=== PATIENT | female | born 1960 | race Caucasian/White ===

== ENCOUNTER → 2023-09-06 08:56 | Outpatient (REF) | payer BC, SELFPAY ==
[2023-09-06 10:04] LABS: % Eosinophils 1.9 % (0-6); % Immature Granulocytes 0.4 % (0-0.5); % Lymphocytes 33.1 % (20.5-51.1); % Monocytes 6.2 % (1.7-9.3); % Neutrophils 57.4 % (42.2-75.2); Absolute Basophils 0.1 10^3/uL (0-0.2); Absolute Eosinophils 0.1 10^3/uL (0-0.7); Absolute Lymphocytes 1.6 10^3/uL (1.2-3.4); Absolute Monocytes 0.3 10^3/uL (0.1-0.6); Absolute Neutrophils 2.8 10^3/uL (1.4-6.5); Hematocrit 38.2 % (37.0-47.0); Hemoglobin 13.4 g/dL (12.0-16.0); Mean Corp Hgb Conc. 35.1 g/dL (33.0-37.0); Mean Corpuscular Hgb 29.6 pg (27.0-31.0); Mean Corpuscular Volume 84.5 fL (81.0-99.0); Mean Platelet Volume 10.5 fL (7.4-10.4); Nucleated Red Blood Cells % 0 %; Platelet Count 229 10^3/uL (130-400); Red Blood Cell Count 4.52 10^6/uL (4.20-5.40); Red Cell Dist. Width 12.4 % (11.5-14.5); White Blood Cell Count 4.8 10^3/uL (4.8-10.8)
[2023-09-06 11:05] LABS: ALT (SGPT) 25 U/L (0-35); AST (SGOT) 27 U/L (14-36); Albumin 4.3 g/dl (3.5-5.0); Alkaline Phosphatase 83 U/L (38-126); Blood Urea Nitrogen 21 mg/dl (7-17); Calcium 9.5 mg/dl (8.4-10.2); Carbon Dioxide 25 mmol/L (22-30); Chloride 104 mmol/L (98-107); Glucose 91 mg/dl (70-99); HDL Cholesterol 67 mg/dl; Potassium 4.3 mmol/L (3.5-5.1); Sodium 136 mmol/L (135-145); Total Bilirubin 1.8 mg/dl (0.2-1.3); Total Protein 7.2 g/dl (6.3-8.2); Triglyceride 215 mg/dl (10-149); Very Low Density Lipoprotein 43 mg/dl (0-30); eGFR > 60.00
[2023-09-06 11:20] LABS: TSH Reflex To Free T4 0.07 uIU/ml (0.47-4.68)
[2023-09-06 11:53] LABS: LDL Cholesterol, Calculated 127 mg/dl; Total Cholesterol 237 mg/dl (50-199)
[2023-09-06 12:23] LABS: Glycohemoglobin (HgbA1c) 5.7 % (4.0-5.6)
== END ==
LOC: WDC 08:56
PROVIDERS: ATTENDING PHYSICIAN Nurse Practitioner Adult Health
DX: Z12.31 Encounter for screening mammogram for malignant neoplasm of breast (principal); R73.03 Prediabetes; E78.2 Mixed hyperlipidemia; R00.2 Palpitations; Z00.00 Encounter for general adult medical examination without abnormal findings
CPT/HCPCS: 36415; 77063; 77067; 80053; 80061; 83036; 84439; 84443; 85025

== ENCOUNTER → 2023-10-22 15:20 | Outpatient (REF) | payer BC, SELFPAY | LOC: RAD 15:20 | PROVIDERS: ATTENDING PHYSICIAN Nurse Practitioner Adult Health | DX: R10.32 Left lower quadrant pain (principal) | CPT/HCPCS: 74177; Q9967 ==

== ENCOUNTER → 2023-11-08 09:20 | Outpatient (REF) | payer BC, SELFPAY ==
[2023-11-08 11:03] LABS: TSH 0.16 uIU/ml (0.47-4.68)
== END ==
LOC: REG 09:20
PROVIDERS: ATTENDING PHYSICIAN Nurse Practitioner Adult Health
DX: E03.9 Hypothyroidism, unspecified (principal)
CPT/HCPCS: 36415; 84443

== ENCOUNTER → 2023-12-27 11:20 | Outpatient (REF) | payer BC, SELFPAY ==
[2023-12-27 12:04] LABS: % Basophils 0.7 % (0-2); % Eosinophils 2.1 % (0-6); % Immature Granulocytes 0.2 % (0-0.5); % Lymphocytes 28.8 % (20.5-51.1); % Monocytes 5.6 % (1.7-9.3); % Neutrophils 62.6 % (42.2-75.2); Absolute Eosinophils 0.1 10^3/uL (0-0.7); Absolute Lymphocytes 1.2 10^3/uL (1.2-3.4); Absolute Monocytes 0.2 10^3/uL (0.1-0.6); Absolute Neutrophils 2.7 10^3/uL (1.4-6.5); Hematocrit 39.8 % (37.0-47.0); Hemoglobin 13.6 g/dL (12.0-16.0); Mean Corp Hgb Conc. 34.2 g/dL (33.0-37.0); Mean Corpuscular Hgb 30.4 pg (27.0-31.0); Mean Corpuscular Volume 88.8 fL (81.0-99.0); Mean Platelet Volume 11.1 fL (7.4-10.4); Nucleated Red Blood Cells % 0 %; Platelet Count 177 10^3/uL (130-400); Red Blood Cell Count 4.48 10^6/uL (4.20-5.40); Red Cell Dist. Width 12.1 % (11.5-14.5); White Blood Cell Count 4.3 10^3/uL (4.8-10.8)
[2023-12-27 13:37] LABS: Blood Urea Nitrogen 20 mg/dl (7-17); Calcium 9.7 mg/dl (8.4-10.2); Carbon Dioxide 29 mmol/L (22-30); Chloride 102 mmol/L (98-107); Glucose 92 mg/dl (70-99); Potassium 4.7 mmol/L (3.5-5.1); Sodium 138 mmol/L (135-145); eGFR > 60.00
== END ==
LOC: REG 11:20
PROVIDERS: ATTENDING PHYSICIAN Orthopaedic Surgery; FAMILY PHYSICIAN Nurse Practitioner Adult Health
DX: Z01.818 Encounter for other preprocedural examination (principal)
CPT/HCPCS: 36415; 80048; 85025

== ENCOUNTER → 2024-01-14 09:18 | Outpatient (REF) | payer BC, SELFPAY ==
[2024-01-14 12:00] LABS: ALT (SGPT) 18 U/L (0-35); AST (SGOT) 22 U/L (14-36); Alkaline Phosphatase 76 U/L (38-126); Blood Urea Nitrogen 22 mg/dl (7-17); Calcium 9.6 mg/dl (8.4-10.2); Carbon Dioxide 29 mmol/L (22-30); Chloride 99 mmol/L (98-107); Glucose 94 mg/dl (70-99); HDL Cholesterol 60 mg/dl; LDL Cholesterol, Calculated 121 mg/dl; Potassium 4.3 mmol/L (3.5-5.1); Sodium 135 mmol/L (135-145); Total Cholesterol 250 mg/dl (50-199); Total Protein 6.5 g/dl (6.3-8.2); Triglyceride 345 mg/dl (10-149); Very Low Density Lipoprotein 69 mg/dl (0-30); eGFR > 60.00
[2024-01-14 12:15] LABS: Glycohemoglobin (HgbA1c) 5.6 % (4.0-5.6)
[2024-01-14 12:23] LABS: TSH 2.96 uIU/ml (0.47-4.68)
== END ==
LOC: REG 09:18
PROVIDERS: ATTENDING PHYSICIAN Nurse Practitioner Adult Health
DX: E03.9 Hypothyroidism, unspecified (principal); E78.2 Mixed hyperlipidemia; R73.03 Prediabetes
CPT/HCPCS: 36415; 80053; 80061; 83036; 84443

== ENCOUNTER → 2024-04-21 16:06 | Outpatient (REF) | payer BC, SELFPAY ==
[2024-04-25 07:17] LABS: HPV, High Risk Not Detected; HPV, High Risk Source Anal
== END ==
LOC: CLAB 16:06
PROVIDERS: ATTENDING PHYSICIAN Surgery
DX: Z11.51 Encounter for screening for human papillomavirus (HPV) (principal)
CPT/HCPCS: 87624; 88112

== ENCOUNTER → 2024-05-15 08:13 | Outpatient (REF) | payer BC, SELFPAY ==
[2024-05-15 09:21] LABS: ALT (SGPT) 34 U/L (0-35); AST (SGOT) 32 U/L (14-36); Albumin 4.3 g/dl (3.5-5.0); Alkaline Phosphatase 67 U/L (38-126); Blood Urea Nitrogen 23 mg/dl (7-17); Calcium 9.8 mg/dl (8.4-10.2); Carbon Dioxide 31 mmol/L (22-30); Chloride 100 mmol/L (98-107); Glucose 88 mg/dl (70-99); HDL Cholesterol 64 mg/dl; LDL Cholesterol, Calculated 116 mg/dl; Potassium 4.8 mmol/L (3.5-5.1); Sodium 140 mmol/L (135-145); Total Bilirubin 1.2 mg/dl (0.2-1.3); Total Cholesterol 224 mg/dl (50-199); Total Protein 6.9 g/dl (6.3-8.2); Triglyceride 220 mg/dl (10-149); Very Low Density Lipoprotein 44 mg/dl (0-30); eGFR > 60.00
[2024-05-15 12:20] LABS: Glycohemoglobin (HgbA1c) 5.4 % (4.0-5.6)
== END ==
LOC: REG 08:13
PROVIDERS: ATTENDING PHYSICIAN Nurse Practitioner Adult Health
DX: E03.9 Hypothyroidism, unspecified (principal); E78.2 Mixed hyperlipidemia; R73.03 Prediabetes; Z68.37 Body mass index [BMI] 37.0-37.9, adult
CPT/HCPCS: 36415; 80053; 80061; 83036

== ENCOUNTER → 2024-05-25 09:04 | Outpatient (REF) | payer BC, SELFPAY | LOC: RAD 09:04 | PROVIDERS: ATTENDING PHYSICIAN Nurse Practitioner Adult Health; FAMILY PHYSICIAN Obstetrics & Gynecology Gynecology | DX: N95.0 Postmenopausal bleeding (principal) | CPT/HCPCS: 76830; 76856 ==

== ENCOUNTER 2024-08-18 06:16 | Day surgery (SDC) | payer BC, SELFPAY | END 2024-08-18 13:49 | disposition home or self-care (01) | LOC: GI 06:16 | PROVIDERS: ATTENDING PHYSICIAN Surgery | DX: Z12.11 Encounter for screening for malignant neoplasm of colon (principal); D12.0 Benign neoplasm of cecum; K57.30 Diverticulosis of large intestine without perforation or abscess without bleeding; Z86.0101 Personal history of adenomatous and serrated colon polyps | CPT/HCPCS: 45385; 88305 ==

== ENCOUNTER → 2024-09-04 08:30 | Outpatient (REF) | payer BC, SELFPAY ==
[2024-09-04 11:11] LABS: Hematocrit 40.3 % (37.0-47.0); Hemoglobin 13.8 g/dL (12.0-16.0); Mean Corp Hgb Conc. 34.2 g/dL (33.0-37.0); Mean Corpuscular Hgb 30.7 pg (27.0-31.0); Mean Corpuscular Volume 89.6 fL (81.0-99.0); Mean Platelet Volume 10.3 fL (7.4-10.4); Platelet Count 204 10^3/uL (130-400); Red Cell Dist. Width 12.3 % (11.5-14.5); White Blood Cell Count 5.6 10^3/uL (4.8-10.8)
[2024-09-04 11:36] LABS: ALT (SGPT) 31 U/L (0-35); AST (SGOT) 27 U/L (14-36); Albumin 4.1 g/dl (3.5-5.0); Alkaline Phosphatase 77 U/L (38-126); Blood Urea Nitrogen 22 mg/dl (7-17); Calcium 9.3 mg/dl (8.4-10.2); Carbon Dioxide 32 mmol/L (22-30); Chloride 101 mmol/L (98-107); Glucose 84 mg/dl (70-99); Potassium 4.6 mmol/L (3.5-5.1); Sodium 139 mmol/L (135-145); Total Bilirubin 1.4 mg/dl (0.2-1.3); Total Protein 6.8 g/dl (6.3-8.2); eGFR > 60.00
[2024-09-04 11:48] LABS: INR 0.89; PT 12.3 Sec (11.4-14.6)
[2024-09-04 14:09] VITALS: BMI 40.5
[2024-09-04 14:34] LABS: Glycohemoglobin (HgbA1c) 5.5 % (4.0-5.6)
== END ==
LOC: REG 08:30
PROVIDERS: ATTENDING PHYSICIAN Surgery; FAMILY PHYSICIAN Nurse Practitioner Adult Health
DX: K57.32 Diverticulitis of large intestine without perforation or abscess without bleeding (principal)
CPT/HCPCS: 36415; 80053; 83036; 85027; 85610; 85730; 86850; 86900; 86901; 93005

== ENCOUNTER → 2024-11-07 11:39 | Outpatient (REF) | payer BC, SELFPAY ==
[2024-11-09 14:12] LABS: Rubeola (Measles) IgG Positive
== END ==
LOC: REG 11:39
PROVIDERS: ATTENDING PHYSICIAN Nurse Practitioner Adult Health
DX: Z01.84 Encounter for antibody response examination (principal)
CPT/HCPCS: 36415; 86765

== ENCOUNTER 2024-11-27 07:41 | Inpatient (IN) | payer BC, SELFPAY ==
[2024-11-18 11:16] LABS: Hematocrit 40.1 % (37.0-47.0); Hemoglobin 13.6 g/dL (12.0-16.0); Mean Corp Hgb Conc. 33.9 g/dL (33.0-37.0); Mean Corpuscular Hgb 30.6 pg (27.0-31.0); Mean Corpuscular Volume 90.1 fL (81.0-99.0); Mean Platelet Volume 11.3 fL (7.4-10.4); Platelet Count 185 10^3/uL (130-400); Red Blood Cell Count 4.45 10^6/uL (4.20-5.40); Red Cell Dist. Width 12.1 % (11.5-14.5); White Blood Cell Count 4.2 10^3/uL (4.8-10.8)
[2024-11-18 11:20] LABS: APTT 24.2 Sec (23.4-35.0); INR 1.07; PT 14.4 Sec (11.4-14.6)
[2024-11-18 11:38] LABS: Glycohemoglobin (HgbA1c) 5.5 % (4.0-5.6)
[2024-11-18 12:08] LABS: ALT (SGPT) 15 U/L (0-35); AST (SGOT) 22 U/L (14-36); Albumin 3.7 g/dl (3.5-5.0); Alkaline Phosphatase 60 U/L (38-126); Blood Urea Nitrogen 17 mg/dl (7-17); Calcium 9.6 mg/dl (8.4-10.2); Carbon Dioxide 33 mmol/L (22-30); Chloride 102 mmol/L (98-107); Glucose 82 mg/dl (70-99); Potassium 4.4 mmol/L (3.5-5.1); Sodium 139 mmol/L (135-145); Total Bilirubin 0.9 mg/dl (0.2-1.3); Total Protein 6.1 g/dl (6.3-8.2); eGFR > 60.00
[2024-11-18 13:04] VITALS: BMI 35.1
[2024-11-27] VITALS (15 sets, daily range): BP systolic 105–143; BP diastolic 51–79; BMI 35.1
[2024-11-27] MEDS: TYLENOL 1000 MG PO (08:19)
[2024-11-27] MEDS: ENTEREG 12 MG PO (08:19)
[2024-11-27] MEDS: HEPARIN 5000 UNITS SC (08:32)
[2024-11-27] MEDS: TRANSDERM-SCOP 1 PATCH TRANSDERM (08:36)
[2024-11-27] MEDS: NORMOSOL-R/PLASMALYTE-A 1000 IV ×2 (09:02→14:28)
--- NOTE | 2024-11-27 12:57 | W.IMMPOSTOP ---
Surgical Immed Post Op Note
-
Primary Surgeon: Cameron Abreu MD
Oil Sprayer: TYRA Burt
Pre-op Diagnosis: Recurrent sigmoid diverticulitis
Post-op Diagnosis: Same
Procedure Performed: Robotic sigmoid colectomy with intracorporeal anastomosis
Anesthesia Type: GET
Specimen / Cultures: Sigmoid colon (suture is proximal)
Estimated Blood Loss: 20cc
Complications: None
Operative Findings: Chronic sigmoid diverticulitis
28mm EEA
Normal leak test
Patient's updated via telephone.
[2024-11-27] MEDS: TORADOL 15 MG IV ×2 (13:37→20:00)
[2024-11-27] MEDS: ZOFRAN 4 MG IV (14:02)
[2024-11-27] MEDS: FLAGYL 500 MG 100 IV (15:30)
[2024-11-27] MEDS: TYLENOL 650 MG PO ×2 (15:31→19:58)
--- NOTE | 2024-11-27 16:17 | PTCARENOTE ---
Pt arrived to 2S from PACU. AAOx3. VSS. Bose catheter in place. Face and chest pink to light red from preoperative bowel prep, unchanged from PACU assessment. 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 IVF infusing as ordered. Tolerating clear liquid diet. Bed locked
in lowest position, safety maintained. Call canchola within reach, spouse at bedside.
[2024-11-28] MEDS: TYLENOL 650 MG PO ×5 (00:59→20:44)
[2024-11-28] MEDS: FLAGYL 500 MG 100 IV (00:59)
[2024-11-28] MEDS: TORADOL 15 MG IV ×4 (01:00→20:44)
[2024-11-28 03:07] VITALS: BP 116/61
[2024-11-28] MEDS: NORMOSOL-R/PLASMALYTE-A 1000 IV ×2 (03:29→14:19)
[2024-11-28] MEDS: TYLENOL PO (04:59)
[2024-11-28] MEDS: SYNTHROID 150 MCG PO (05:16)
[2024-11-28 06:00] VITALS: BMI 35.0
[2024-11-28 07:07] LABS: % Basophils 0.2 % (0-2); % Immature Granulocytes 0.5 % (0-0.5); % Lymphocytes 5.7 % (20.5-51.1); % Neutrophils 89.6 % (42.2-75.2); Absolute Lymphocytes 0.4 10^3/uL (1.2-3.4); Absolute Monocytes 0.3 10^3/uL (0.1-0.6); Absolute Neutrophils 5.8 10^3/uL (1.4-6.5); Hematocrit 34.8 % (37.0-47.0); Hemoglobin 12.3 g/dL (12.0-16.0); Mean Corp Hgb Conc. 35.3 g/dL (33.0-37.0); Mean Corpuscular Hgb 30.9 pg (27.0-31.0); Mean Corpuscular Volume 87.4 fL (81.0-99.0); Mean Platelet Volume 10.8 fL (7.4-10.4); Nucleated Red Blood Cells % 0 %; Platelet Count 147 10^3/uL (130-400); Red Blood Cell Count 3.98 10^6/uL (4.20-5.40); White Blood Cell Count 6.5 10^3/uL (4.8-10.8)
[2024-11-28 07:20] VITALS: BP 124/69
[2024-11-28 07:35] LABS: Blood Urea Nitrogen 11 mg/dl (7-17); Calcium 8.4 mg/dl (8.4-10.2); Carbon Dioxide 29 mmol/L (22-30); Chloride 107 mmol/L (98-107); Estimated Creatinine Clearance 95 ml/min; Glucose 131 mg/dl (70-99); Potassium 4.1 mmol/L (3.5-5.1); Sodium 139 mmol/L (135-145); eGFR > 60.00
[2024-11-28] MEDS: ENTEREG 12 MG PO ×2 (08:37→20:44)
[2024-11-28] MEDS: ASPIR LOW (ENTERIC COATED) 81 MG PO (08:37)
[2024-11-28] MEDS: ZESTRIL 10 MG PO (08:38)
[2024-11-28] MEDS: ORETIC 12.5 MG PO (08:38)
--- NOTE | 2024-11-28 09:39 | CM ---
CM met with pt at bedside POD 1.
Pt resides with spouse in a rancher home with 2 randi. Prior to admission ind with adl's and amb using no AD. No DME in home. 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
Confirmed PCP is Erickson Reyes. Pharmacy is [address]
Pt has VN history with [facility]. Acute rehab history at [facility] s/p ECMO years ago. No SNF hx.
Discussed VN. If recc'd, pt is agreeable. Offered choice. Preference would be for [facility].
CM to follow and watch for needs. Pt has + family supports in the home (spouse) and daughter in [place].
[2024-11-28 11:15] VITALS: BP 98/50
--- NOTE | 2024-11-28 13:49 | W.PN.CRS1 ---
Addendum entered and electronically signed by Kolton Lopez MD 11/28/24 14:03:
Patient seen and examined.
No significant complaints. Pain well-controlled. No nausea or vomiting. Passing flatus, no BM. Afebrile. Ambulating. Bose in place.
Gen: NAD
Abd: soft, mild tenderness, obese, ND, non-peritoneal, incisions c/d/i - no erythema, ecchymosis or drainage
Patient is a 64 yo F with a h/o recurrent diverticulitis presenting for scheduled surgery
POD #1 Robotic sigmoid colectomy with intracorporeal anastomosis
AFVSS
Labs stable, no leukocytosis
Passing flatus, tolerating clears thus far
--C/W CLD
--Continue IVF
--Pain control: Tylenol, Toradol, Oxycodone, IV Dilaudid PRN
--DC Bose; void trial
--OOB/Ambulate
--Continue home meds
--DVT: Lovenox
Original Note:
Today's Communication / Plan
-
Clears/IVF
Void trial
Assessment/Plan
-
64 yo female with a h/o recurrent diverticulitis presenting for scheduled surgery now POD #1 Robotic sigmoid colectomy with intracorporeal anastomosis
AFVSS
Labs stable, no leukocytosis
Passing flatus, tolerating clears thus far
--Void trial
--OOB/Ambulate
--C/W CLD
--Analgesics scheduled and prn
--Continue home meds
--Continue IVF
--Lovenox for VTE ppx
Subjective Data
Procedure
11/27/2024 Robotic sigmoid colectomy with intracorporeal anastomosis
Subjective Data
Date of Service: November 28, 2024
Patient seen and examined at bedside with Dr. Lambour. Denies n/v. Ambulating in hallways. Passing flatus. Minimal discomfort.
Objective Data
-
Vital Signs
Temp Pulse Resp BP Pulse Ox
97.8 F 55 16 98/50 99
11/28/24 11:15 11/28/24 11:15 11/28/24 11:15 11/28/24 11:15 11/28/24 11:15
Intake & Output
11/27/24 11/28/24 11/29/24
06:59 06:59 06:59
Intake Total 1700 / 1700
Output Total 2550 / 2550
Balance -850 / -850
Intake:
IV fluids (Total) 1500 / 1500
Normosal 400 / 400
IV piggybacks 200 / 200
Output:
Urine, Bose 2550 / 2550
Lab Results
11/28/24 05:28
11/28/24 05:28
Physical Exam
-
General: No Acute Distress
Abdomen: Soft, Non Distended and Tender (minimal to incisions)
Incision: Clear, Dry, Intact (dermabond intact, mild ecchymosis)
[2024-11-28 15:40] VITALS: BP 103/46
[2024-11-28 16:27] VITALS: BP 100/55
[2024-11-28] MEDS: LOVENOX 40 MG SC (17:13)
[2024-11-28 23:30] VITALS: BP 109/53
[2024-11-29] MEDS: TYLENOL PO ×2 (01:00→23:04)
[2024-11-29] MEDS: TORADOL 15 MG IV ×2 (02:48→13:00)
[2024-11-29] MEDS: NORMOSOL-R/PLASMALYTE-A 1000 IV (02:50)
[2024-11-29] MEDS: TYLENOL 650 MG PO ×5 (03:03→19:44)
[2024-11-29 06:00] VITALS: BMI 35.5
[2024-11-29] MEDS: SYNTHROID 300 MCG PO (06:08)
[2024-11-29 08:15] VITALS: BP 100/56
[2024-11-29] MEDS: ASPIR LOW (ENTERIC COATED) 81 MG PO (08:27)
[2024-11-29] MEDS: ORETIC PO (08:28)
[2024-11-29] MEDS: ENTEREG 12 MG PO ×2 (08:28→19:44)
[2024-11-29] MEDS: ZESTRIL PO (08:29)
--- NOTE | 2024-11-29 11:17 | W.PN.CRS1 ---
Addendum entered and electronically signed by Kolton Lopez MD 11/29/24 11:47:
Patient seen and examined.
No complaints. Pain well-controlled, intermittent crampy pain in LLQ. Tolerated clears. Reports passing flatus and small amounts of stool, does report from darker tarry, no bright red. No dizziness or lightheadedness. No nausea or vomiting.
Afebrile. Voiding. Ambulating.
Gen: NAD
Abd: soft, obese, mild tenderness, ND, non-peritoneal, incisions c/d/i - no erythema, ecchymosis or drainage (gauze placed at Pfannenstiel incision to keep dry)
Patient 64 yo F with a h/o recurrent diverticulitis presenting for scheduled surgery
POD #2 Robotic sigmoid colectomy with intracorporeal anastomosis
AFVSS
Passing flatus/stools
Voiding
--Advance to LRD
--Pain control: Tylenol, Toradol, Oxycodone
--DC IVF
--OOB/Ambulate
--Continue home meds
--DVT: Lovenox
Original Note:
Today's Communication / Plan
-
LRD
Assessment/Plan
-
64 yo female with a h/o recurrent diverticulitis presenting for scheduled surgery
POD #2 Robotic sigmoid colectomy with intracorporeal anastomosis
AFVSS
Passing flatus/stools
Voiding
--Advance to LRD
--OOB/Ambulate
--Analgesics scheduled and prn
--Continue home meds
--D/C IVF
--Lovenox for VTE ppx
Subjective Data
Procedure
11/27/2024 Robotic sigmoid colectomy with intracorporeal anastomosis
Subjective Data
Date of Service: November 29, 2024
Patient seen and examined at bedside with Dr. Lambour. Denies n/v. Tolerating clears. Some cramping discomfort in the LLQ intermittently. Ambulating halls. Has passed some sticky black stools, no noted blood. Passing flatus.
Objective Data
-
Vital Signs
Temp Pulse Resp BP Pulse Ox
98.5 F 61 18 100/56 95
11/29/24 08:15 11/29/24 08:15 11/29/24 08:15 11/29/24 08:15 11/29/24 08:15
Intake & Output
11/28/24 11/29/24 11/30/24
06:59 06:59 06:59
Intake Total 1700 / 1700 2019 / 2020
Output Total 2550 / 2550 2185 / 2185
Balance -850 / -850 -165 / -165
Intake:
Oral fluids 1140 / 1140
IV fluids (Total) 1500 / 1500 880 / 880
Normosal 400 / 400
IV piggybacks 200 / 200
Output:
Urine, Bose 2550 / 2550 1000 / 1000
Urine, Voided 1185 / 1185
Other:
Number of approximated MODERATE 1
amounts of urine
Lab Results
11/28/24 05:28
11/28/24 05:28
Physical Exam
-
General: No Acute Distress
Abdomen: Soft, Non Distended and Tender (minimal to incisions)
Incision: Clear, Dry, Intact (dermabond intact, mild ecchymosis)
[2024-11-29] MEDS: TORADOL IV ×2 (11:33→19:46)
[2024-11-29] MEDS: NORMOSOL-R/PLASMALYTE-A IV (11:45)
[2024-11-29 15:43] VITALS: BP 108/51
[2024-11-29] MEDS: LOVENOX 40 MG SC (17:17)
[2024-11-29 23:00] VITALS: BP 100/56
[2024-11-30] MEDS: TORADOL IV ×2 (01:03→08:33)
[2024-11-30] MEDS: TYLENOL 650 MG PO ×2 (03:01→08:32)
[2024-11-30] MEDS: SYNTHROID 150 MCG PO (05:26)
[2024-11-30 05:55] VITALS: BMI 35.3
[2024-11-30 07:15] VITALS: BP 125/64
[2024-11-30 08:20] LABS: Hematocrit 33.1 % (37.0-47.0); Hemoglobin 11.3 g/dL (12.0-16.0); Mean Corp Hgb Conc. 34.1 g/dL (33.0-37.0); Mean Corpuscular Hgb 30.5 pg (27.0-31.0); Mean Corpuscular Volume 89.2 fL (81.0-99.0); Mean Platelet Volume 11.4 fL (7.4-10.4); Platelet Count 126 10^3/uL (130-400); Red Blood Cell Count 3.71 10^6/uL (4.20-5.40); Red Cell Dist. Width 12.1 % (11.5-14.5); White Blood Cell Count 4.5 10^3/uL (4.8-10.8)
[2024-11-30] MEDS: ASPIR LOW (ENTERIC COATED) 81 MG PO (08:32)
[2024-11-30 08:33] LABS: Blood Urea Nitrogen 10 mg/dl (7-17); Calcium 8.8 mg/dl (8.4-10.2); Carbon Dioxide 31 mmol/L (22-30); Chloride 108 mmol/L (98-107); Estimated Creatinine Clearance 96 ml/min; Glucose 88 mg/dl (70-99); Sodium 142 mmol/L (135-145); eGFR > 60.00
[2024-11-30] MEDS: ZESTRIL PO (08:35)
[2024-11-30] MEDS: ORETIC PO (08:35)
[2024-11-30] MEDS: ENTEREG PO (08:35)
--- NOTE | 2024-11-30 09:12 | W.PN.CRS1 ---
Today's Communication / Plan
-
as below
Assessment/Plan
-
64-year-old female with PMH of hypothyroidism, IBS, CYNTHIA, PCOS, FLD and diverticulitis who presented for elective surgery
POD 3 robotic sigmoidectomy
AFVSS
WBC 4.5 from 6.5, Hb 11.3, CR 0.7
� Continue low residue diet
� Pain control with Tylenol, Toradol, oxycodone and Dilaudid as needed; continue Entereg
� Continue DVT PPx; drop in Hb likely hemodilutional
�Continue home meds
� Encourage IS/OOB
� Okay for discharge today
Subjective Data
Procedure
11/27/2024 Robotic sigmoid colectomy with intracorporeal anastomosis
Subjective Data
Date of Service: November 30, 2024
No overnight events.
Pain controlled.
Denies nausea/vomiting. Tolerating diet.
+flatus +BMs (nonbloody) +voiding
Pt is OOB.
Objective Data
-
Vital Signs
Temp Pulse Resp BP Pulse Ox
98.9 F 55 16 125/64 96
11/30/24 07:15 11/30/24 07:15 11/30/24 07:15 11/30/24 07:15 11/30/24 07:15
Intake & Output
11/29/24 11/30/24 12/01/24
06:59 06:59 06:59
Intake Total 2019 480 / 480
Output Total 218 / 218
Balance -165 / -165 480 / 480
Intake:
Oral fluids 1140 / 1140 480 / 480
IV fluids (Total) 880 / 880
Output:
Urine, Bose 1000 / 1000
Urine, Voided 1185 / 1185
Other:
Number of approximated MODERATE 1 2
amounts of urine
Lab Results
11/30/24 07:30
11/30/24 07:30
Physical Exam
-
General: No Acute Distress and AOx3
Abdomen: Soft, Distended (Mildly distended, none tympanitic), Tender (Appropriately tender near incisions), No Guarding and No Rebound
Skin: Warm and Dry
Wound: No Signs of Infection, Dressing in Place (Dermabond) and No Skin Erythema (Mild ecchymosis associated with incisions)
--- NOTE | 2024-11-30 09:38 | W.DCSUMMARY ---
Discharge Summary
Discharge Data
Date of Admission: 11/27/24
Date of Discharge: 11/30/24
-
Pending Results: Yes
Additional Pending Results:
OR pathology
Hospital Course
64-year-old female presented to [facility] for a scheduled robotic sigmoid colectomy with Dr. Cameron Abreu for recurrent sigmoid diverticulitis on 11/27/2024. She tolerated the procedure well and was brought back to the medical surgical
floor. She was started on a clear liquid diet. The following day she was out of bed. Lovenox was started for DVT prophylaxis. Her pain was controlled. Her diet was then advanced to a low residue diet by postop day 3. It was determined the
patient could be discharged to home on postop day 3. Her pain was well-controlled. She had bowel function. Given her history of DVT, she was started on Lovenox for 3 weeks for prophylaxis. All discharge instructions were discussed with the
patient including medications details and follow-up. All questions were addressed.
Discharge Plan
-
Patient Disposition: Home (Routine Discharge)
Discharge Diagnosis/Procedures: Robotic sigmoid colectomy
Diet: Low Residue
Activity: No strenuous activity
Additional Activity: No lifting over 10lbs (gallon of milk)
Driving Restrictions: No driving for 1 week
Bathing Restrictions: OK to Shower
Wound Care: Allow glue to naturally fall off. Do not pick at incisions.
Instructions: Enoxaparin, Low-fiber diet
Referrals:
Douglas Abreu MD [Active] - in two weeks
Erickson Reyes CRNP [Family Provider] -
Additional Discharge Medication Instructions: Tylenol or Ibuprofen as needed for pain. Maximum dose of Tylenol is 4,000mg in 24 hours. Maximum dose of Ibuprofen is 3,200mg in 24 hours.
Prescriptions:
New
enoxaparin [Lovenox] 40 mg/0.4 mL syringe
40 mg SC DAILY 21 Days Qty: 8.4 0RF
Continued
multivitamin 1 EACH tablet
1 ea PO DAILY
L.acidoph,paracasei,B.animalis 1 EACH capsule
1 ea PO DAILY
levothyroxine 150 MCG tablet
150 mcg PO MOTUWETHFRSA
lisinopril-hydrochlorothiazide 10-12.5 mg Tablet
1 tab PO DAILY
alprazolam [Xanax] 0.25 mg Tablet
0.25 mg PO PRN PRN (Reason: anxiety)
PreserVision AREDS-2 250-90-40-1 mg Capsule
1 tab PO DAILY
nystatin 100,000 unit/mL Suspension
100,000 unit PO QID
levothyroxine 150 mcg Tablet
300 mcg PO BARRAGAN
Klor-Con/EF 25 mEq Tablet, Effervescent
50 meq PO QPM
Tylenol PM
1 dose PO PRN PRN (Reason: sleep)
aspirin 81 MG tablet,delayed release (DR/EC)
81 mg PO DAILY Qty: 0 0RF
Rx Instructions:
with food
Discontinued
metronidazole [Flagyl] 500 mg Tablet
500 mg PO PRE OP
Patient Comments:
Patient called Dr. Abreu .
Rx Instructions:
1400.1500
neomycin 500 mg Tablet
1,000 mg PO PRE OP
Rx Instructions:
1400.1500.
Sutab 1.479-0.188- 0.225 gram Tablet
1 tab PO PRE OP
Rx Instructions:
Bowel prep for surgery
metronidazole 500 mg Tablet
500 mg PO TID
Patient Comments:
Patient has been on this for 6 weeks.
levofloxacin [Levaquin] 750 mg Tablet
750 mg PO DAILY
Discharge Orders:
Discharge Patient (As Directed); Ordered 11/30/24
Ordered By: Lachelle Evans
Discharge Date and Time
Print Language: TAJIK
--- NOTE | 2024-11-30 09:48 | CM ---
CM reviewed medical records. Patient is medically ready for discharge. No needs noted.
PLAN: home no needs.
--- NOTE | 2024-11-30 11:00 | PTCARENOTE ---
pt and verbalized ability to administer Lovenox injections at home. teaching session w/evening nurse last night w/1800 dose. was also taking Lovenox injections in the past. denied to have a visiting nurse.
== END 2024-11-30 11:00 | disposition home or self-care (01) | DRG 331 ==
LOC: 2 SOUTH 07:41
PROVIDERS: Registered Nurse; ADMITTING PHYSICIAN Surgery; FAMILY PHYSICIAN Nurse Practitioner Adult Health
PROC: 8E0W4CZ Robotic Assisted Procedure of Trunk Region, Percutaneous Endoscopic Approach (ICD-10-PCS; 2024-11-27)
PROC: 0DTN4ZZ Resection of Sigmoid Colon, Percutaneous Endoscopic Approach (ICD-10-PCS; 2024-11-27)
DX: K57.32 Diverticulitis of large intestine without perforation or abscess without bleeding (principal); K66.0 Peritoneal adhesions (postprocedural) (postinfection); F41.9 Anxiety disorder, unspecified; Z86.718 Personal history of other venous thrombosis and embolism
CPT/HCPCS: 88307; 36415; 80048; 80053; 83036; 85025; 85027; 85610; 85730; 86850; 86900; 86901; 93005

== ENCOUNTER → 2025-01-26 15:56 | Outpatient (REF) | payer BC, SELFPAY | LOC: RAD 15:56 | PROVIDERS: ATTENDING PHYSICIAN Urology; FAMILY PHYSICIAN Nurse Practitioner Adult Health | DX: N20.0 Calculus of kidney (principal); N13.30 Unspecified hydronephrosis | CPT/HCPCS: 76775 ==

== ENCOUNTER → 2025-02-08 16:47 | Outpatient (REF) | payer BC, SELFPAY | LOC: WDC 16:47 | PROVIDERS: ATTENDING PHYSICIAN Nurse Practitioner Adult Health | DX: Z12.31 Encounter for screening mammogram for malignant neoplasm of breast (principal) | CPT/HCPCS: 77063; 77067 ==

== ENCOUNTER → 2025-02-20 09:33 | Outpatient (REF) | payer BC, SELFPAY ==
[2025-02-20 10:13] LABS: Hematocrit 38.2 % (37.0-47.0); Hemoglobin 13.3 g/dL (12.0-16.0); Mean Corp Hgb Conc. 34.8 g/dL (33.0-37.0); Mean Corpuscular Volume 87.6 fL (81.0-99.0); Nucleated Red Blood Cells % 0 %; Platelet Count 190 10^3/uL (130-400); Red Cell Dist. Width 12.5 % (11.5-14.5)
[2025-02-20 10:26] LABS: ALT (SGPT) 27 U/L (0-35); AST (SGOT) 25 U/L (14-36); Albumin 4.3 g/dl (3.5-5.0); Alkaline Phosphatase 71 U/L (38-126); Blood Urea Nitrogen 20 mg/dl (7-17); Calcium 9.5 mg/dl (8.4-10.2); Carbon Dioxide 31 mmol/L (22-30); Chloride 104 mmol/L (98-107); Glucose 101 mg/dl (70-99); HDL Cholesterol 63 mg/dl; LDL Cholesterol, Calculated 153 mg/dl; Potassium 4.4 mmol/L (3.5-5.1); Sodium 138 mmol/L (135-145); Total Protein 6.9 g/dl (6.3-8.2); Very Low Density Lipoprotein 40 mg/dl (0-30); eGFR > 60.00
[2025-02-20 11:06] LABS: Glycohemoglobin (HgbA1c) 5.4 % (4.0-5.6)
== END ==
LOC: REG 09:33
PROVIDERS: ATTENDING PHYSICIAN Nurse Practitioner Adult Health
DX: Z76.89 Persons encountering health services in other specified circumstances (principal); Z01.818 Encounter for other preprocedural examination; E03.9 Hypothyroidism, unspecified; R73.03 Prediabetes; E78.2 Mixed hyperlipidemia; I87.2 Venous insufficiency (chronic) (peripheral); Z86.711 Personal history of pulmonary embolism; Z86.718 Personal history of other venous thrombosis and embolism; Z87.19 Personal history of other diseases of the digestive system; Z00.00 Encounter for general adult medical examination without abnormal findings
CPT/HCPCS: 36415; 80053; 80061; 83036; 84439; 84443; 85025

== ENCOUNTER → 2025-04-10 11:49 | Outpatient (REF) | payer BC, SELFPAY ==
[2025-04-10 13:51] LABS: TSH 1.23 uIU/ml (0.47-4.68)
== END ==
LOC: REG 11:49
PROVIDERS: ATTENDING PHYSICIAN Nurse Practitioner Adult Health
DX: E03.9 Hypothyroidism, unspecified (principal)
CPT/HCPCS: 36415; 84443

== ENCOUNTER → 2025-06-28 12:57 | Outpatient (REF) | payer BC, SELFPAY ==
[2025-06-28 14:17] LABS: Blood Urea Nitrogen 13 mg/dl (7-17)
== END ==
LOC: RAD 12:57
PROVIDERS: ATTENDING PHYSICIAN Nurse Practitioner Adult Health
DX: R10.32 Left lower quadrant pain (principal); Z87.19 Personal history of other diseases of the digestive system; Z01.818 Encounter for other preprocedural examination
CPT/HCPCS: 36415; 74177; 82565; 84520; Q9967